=== PATIENT | male | born 1970 | race Caucasian/White ===

== ENCOUNTER 2017-04-05 09:18 | Emergency (ER) | payer BC, MEDICAID, OTHER ==
[~2017-04-05 09:18] MED LIST: ASPI81TA81 PO; METO25TA3 PO; TAMS0.4C4 PO
[2017-04-05 09:35] VITALS: BP 111/65; PULSE 82; RESP 18; TEMP 97.8; O2SAT 98
[2017-04-05] MEDS ORDERED: SODIUM CHLORID 0.9% 500 ML INJ 500 ML IV ONE (09:45)
[2017-04-05] MEDS ORDERED: MORPHINE SULFATE 4 MG/ML INJ IV PUSH ONE (09:45)
[2017-04-05] MEDS ORDERED: SODIUM CHLORIDE 0.9% FLUSH 10 ML FLUSH IVF PRN (09:45)
[2017-04-05 09:59] VITALS: BP 111/65; PULSE 82; RESP 18; RESP 20; TEMP 97.8; O2SAT 98
--- NOTE | 2017-04-05 10:06 | RADRPT ---
EXAM DATE/TIME: 04/05/2017 09:53 [facility] COMPARISON: CHEST SINGLE AP, October 20, 2016, 18:03. INDICATIONS : Chest pain and shortness of breath. MEDICAL HISTORY : None. SURGICAL HISTORY : None. ENCOUNTER: Initial ACUITY: 2 days PAIN SCORE: 10/10 LOCATION: Bilateral chest FINDINGS: A single view of the chest demonstrates right basilar atelectasis. Slight elevation right hemidiaphra gm. Heart normal in size. Left lung clear. Osseous structures are intact. CONCLUSION: Slight elevation right hemidiaphragm and right basilar atelectasis.. Warren Rajan MD on April 05, 2017 at 10:03 Board Certified Radiologist. This report was verified electronically.
[2017-04-05] MEDS ORDERED: IOHEXOL 350 MG/ML 10 ML VIAL (for RAD DIAG) IV ONE (10:49)
[2017-04-05 10:50] VITALS: RESP 18
[2017-04-05 10:56] LABS: AUTOMATED NEUTROPHIL # 5.7 TH/MM3 (1.8-7.7); BASOPHIL % 0.5 % (0.0-2.0); EOSINOPHIL # 0.3 TH/MM3 (0-0.4); EOSINOPHIL % 2.8 % (0.0-4.0); HEMATOCRIT 38.9 % (39.0-51.0); LYMPH % 25.4 % (9.0-44.0); LYMPHOCYTE # 2.3 TH/MM3 (1.0-4.8); MEAN CELL VOLUME 75.7 FL (80.0-100.0); MEAN CORPUSCULAR HEMOGLOBIN 24.3 PG (27.0-34.0); MONO % 8.6 % (0.0-8.0); NEUT % 62.7 % (16.0-70.0); PLATELET COUNT 187 TH/MM3 (150-450); RED BLOOD COUNT 5.14 MIL/MM3 (4.50-5.90); RED CELL DISTRIBUTION WIDTH 20.4 % (11.6-17.2); WHITE BLOOD COUNT 9.2 TH/MM3 (4.0-11.0)
--- NOTE | 2017-04-05 10:57 | RADRPT ---
EXAM DATE/TIME: 04/05/2017 10:31 [facility] COMPARISON: CHEST SINGLE AP, April 05, 2017, 9:53. INDICATIONS : Chest pain. IV CONTRAST: 89 cc Omnipaque 350 (iohexol) IV RADIATION DOSE: 23.06 CTDIvol (mGy) MEDICAL HISTORY : Hypertension. SURGICAL HISTORY : Gastrostomy. ENCOUNTER: Initial ACUITY: 1 day PAIN SCALE: 5/10 LOCATION: Bilateral upper chest TECHNIQUE: Volumetric scanning of the chest was performed using a pulmonary embolism protocol MIP images were re constructed. Using automated exposure control and adjustment of the mA and/or kV according to patien t size, radiation dose was kept as low as reasonably achievable to obtain optimal diagnostic quality images. FINDINGS: PULMONARY ARTERIES: No filling defects are seen in the pulmonary arteries through the segmental level. LUNGS: Minimal scattered densities right lower lobe. There is no consolidation or pneumothorax . No concern ing pulmonary nodule is visualized. PLEURAE: Tiny right pleural effusion. There is no pleural thickening or pleural effusion on the left. MEDIASTINUM: There is good visualization of the great vessels of the middle mediastinum. No evidence of mediastin al or hilar adenopathy/mass. MUSCULOSKELETAL: Within normal limits for patient age. MISCELLANEOUS: The visualized upper abdominal organs demonstrate no acute abnormality. CONCLUSION: 1. Tiny right pleural effusion and right basilar density likely atelectasis. 2. No evidence for pulmonary embolism. Warren Rajan MD on April 05, 2017 at 10:52 Board Certified Radiologist. This report was verified electronically.
[2017-04-05 10:59] LABS: HEMO FLAGS AUTO DIFF
[2017-04-05 11:04] LABS: APTT (PATIENT) 24.1 SEC (24.3-30.1); PROTHROMBIN TIME - PATIENT 10.6 SEC (9.8-11.6)
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
[2017-04-05 11:19] LABS: ALT (GPT) 55 U/L (12-78); ANION GAP 6 MEQ/L (5-15); AST (GOT) 41 U/L (15-37); BICARBONATE 30.6 MEQ/L (21.0-32.0); BLOOD UREA NITROGEN 14 MG/DL (7-18); CHLORIDE 101 MEQ/L (98-107); GLOMERULAR FILTRATION RATE 129 ML/MIN (>89); MAGNESIUM 2.2 MG/DL (1.5-2.5); POTASSIUM 3.9 MEQ/L (3.5-5.1); SODIUM (NA) 138 MEQ/L (136-145)
[2017-04-05 11:22] LABS: ALKALINE PHOSPHATASE 93 U/L (45-117); TOTAL BILIRUBIN ADULT 0.3 MG/DL (0.2-1.0)
[2017-04-05 11:28] LABS: CREATINE KINASE 77 U/L (39-308)
[2017-04-05 11:33] LABS: PLATELET ESTIMATE SMEAR NORMAL (NORMAL); PLATELET MORPHOLOGY ENLARGED (NORMAL); SCAN/DIFF AUTO DIFF CONFIRMED
[2017-04-05] MEDS ORDERED: MILKSUS PO (12:15)
[2017-04-05] MEDS ORDERED: FERR325T PO (12:15)
[2017-04-05] MEDS ORDERED: FLEEENE3 RECTAL (12:15)
[2017-04-05] MEDS ORDERED: MYLASUS2 PO (12:15)
[2017-04-05] MEDS ORDERED: TRAM50TA PO (12:15)
[2017-04-05] MEDS ORDERED: TYLE325T PO (12:15)
[2017-04-05] MEDS ORDERED: DULC10SU3 RECTAL (12:15)
[2017-04-05] MEDS ORDERED: LOPE2TAB3 PO (12:15)
--- NOTE | 2017-04-05 13:46 | EKG ---
Date Performed: 04/05/2017 Time Performed: 09:32:09 PTAGE: 46 years EKG: Sinus rhythm NONSPECIFIC T-WAVE ABNORMALITY Compared to previous tracing, the nonspecific T wave changes are new. Clinical correlation is advised. BORDERLINE ECG PREVIOUS TRACING : 10/20/2016 18.09 DOCTOR: Anita Rodgers Interpretating Date/Time 04/05/2017 13:45:22
[2017-04-05 19:07] VITALS: BP 114/78
== END 2017-04-05 19:09 | disposition home or self-care (01) ==
LOC: NEPC 09:18
DX: J90 Pleural effusion, not elsewhere classified (principal); J98.11 Atelectasis; I10 Essential (primary) hypertension; Z79.82 Long term (current) use of aspirin
CPT/HCPCS: 71010; 71275; 80053; 82550; 83690; 83735; 84484; 85025; 85610; 85730; 93005; 96361; 96374; 99285; J2270; J7040; Q9967